=== PATIENT | male | born 1985 | race African-American/Black ===

== ENCOUNTER 2020-01-25 04:11 | Emergency (ER) | payer SELFPAY ==
[~2020-01-25] VITALS: Ht 190.5 cm; Wt 70.3 kg
[2020-01-25 04:26] VITALS: BP 150/71
--- NOTE | 2020-01-25 04:40 | NUR ---
PT ALERT AND OX4, RESPONSIVE. DENIED ANY PAIN OR DISCOMFORT. NO DIZZINESS. ROAD TEST APPLIED. PT AMBULATORY W/ STEADY GAITS. MEDICALLY STABLE FOR D/C.Patient discharged to home in stable condition. Written and verbal after care instructions given. Patient verbalizes understanding of instruction.
== END 2020-01-25 04:50 | disposition home or self-care (01) ==
LOC: ER 04:13
DX: F10.129 Alcohol abuse with intoxication, unspecified (principal); F17.200 Nicotine dependence, unspecified, uncomplicated; Y90.9 Presence of alcohol in blood, level not specified; Z60.2 Problems related to living alone